=== PATIENT | female | born 1980 | race Caucasian/White ===

== ENCOUNTER 2016-05-15 20:58 | Emergency (ER) | payer MEDICAID ==
--- NOTE | 2016-05-16 00:31 | ERNOTE ---
Upper Extremity HPI - General Extremities Pain Location: forearm: right - pain and swelling after a fall Time Seen by Provider: 05/16/16 00:10 Source: patient Exam Limitations: intoxication - Immun/Allergies/Home Medications Immunizations: IMMUNIZATION HX Immunizations Up to Date Yes History of Influenza Vaccine Yes Allergies/Adverse Reactions: Allergies Allergy/AdvReac Type Severity Reaction Status Date / Time morphine Allergy Mild Itching Verified 05/15/16 22:16 cephalexin [Cephalexin] AdvReac Intermediate Other Verified 05/15/16 22:16 Home Medications: HOME MEDICATIONS ALPRAZolam [Xanax] 2 mg PO TID PRN 05/09/12 [Last Taken Unknown] Albuterol Sulfate [Proventil Hfa] 1 inhaler INH Q4H PRN 05/09/12 [Last Taken Unknown] Amitriptyline HCl 100 mg PO HS 05/09/12 [Last Taken Unknown] Ferrous Sulfate [Iron] 325 mg PO DAILY 05/09/12 [Last Taken Unknown] Quetiapine Fumarate [Seroquel] 400 mg PO HS 05/09/12 [Last Taken Unknown] Rizatriptan Benzoate [Maxalt] 10 mg PO PRN PRN 05/09/12 [Last Taken Unknown] Tiotropium [place] [Spiriva] 18 mcg IH DAILY 05/11/12 [Last Taken 05/11/12 09:00 ] Fluticasone/Salmeterol [Advair 250-50 Diskus] 1 puff INH BID 08/09/13 [Last Taken Unknown] Ibuprofen [Motrin] 800 mg PO PRN 08/09/13 [Last Taken Unknown] Meclizine HCl 25 mg PO PRN 08/09/13 [Last Taken Unknown] - History of Present Illness Narrative: fall on forearm with pain and swelling Occurred: this afternoon Location of Incident: home Severity: moderate Method of Injury: Reports: fell Reason for Fall: Reports: slipped Loss of Consciousness: Reports: no loss of consciousness Modifying Factors - (Improves): Reports: immobilization Modifying Factors - (Worsens): Reports: movement Associated Symptoms: Reports: loss of power (rt arm) Other Injuries: Reports: none Review of Systems - Narrative Narrative: Pt is a poor historian - Review of Systems Constitutional: Present: no symptoms reported EYE: Present: no symptoms reported ENT: Present: no symptoms reported Respiratory: Present: no symptoms reported Cardiology: Present: no symptoms reported Gastrointestinal/Abdominal: Present: no symptoms reported Genitourinary: Present: no symptoms reported Musculoskeletal: Present: See HPI, muscle stiffness, joint pain, joint swelling Skin: Present: See HPI, lumps, change in color Neurological: Present: no symptoms reported Endocrine: Present: no symptoms reported Hematologic/Lymphatic: Present: no symptoms reported Psych: Present: no symptoms reported - Patient's Past Medical History Patient History - Medical: Anxiety, GERD Patient History - Cancer: Cervical Patient History - Surgical Procedures: Other - Social History Living Situations: home Smoking Status: Current every day smoker Patient requests Smoking Cessation Consult: No Initiate information on Smoking Cessation: No Alcohol Use: none Drug Use: none Physical Exam - Physical Exam General Appearance: Present: wd/wn, mild distress, thin, sleeping/easy to arouse - but appears somewhat confused upon awakening Ears, Nose, Throat: Present: normal ENT inspection, hearing grossly normal Neck: Present: normal inspection, nontender Respiratory: Present: no respiratory distress, no accessory muscle use Extremity Exam: Present: decreased range of motion, other - tenderness right forearm from elbow to hand. Bruising right medial/ posterior forearm near the wrist Neurological Exam: Present: other - Seemed confused and had scattered thoughts when awakened Skin Exam: Present: warm/dry, other - red to brown bruising right distal forearm ED Progress - Vital Signs Patient's Vital Signs:: I have reviewed the patient's vital signs. Vital Signs: Vital Signs 05/15/16 22:09 Temperature 36.5 C Pulse Rate 88 Respiratory 18 Rate Blood Pressure 153/67 O2 Sat by Pulse 98 Oximetry - X-Ray X-Ray #1 X-Ray: forearm - showed a irregularity near the distal end of the bone, but no definate fracture X-Ray #2 X-Ray: wrist - no fracture or dislocation - Progress/Reassessment Chief Complaint: Upper Extremity Injury/Problem Departure Clinical Impression: Right wrist fracture Qualifiers: Encounter type: initial encounter Fracture type: closed Qualified Code(s): S62.101A - Fracture of unspecified carpal bone, right wrist, initial encounter for closed fracture - Departure Disposition: Home Follow Up Needed Condition: Fair Instructions: Wrist Fracture Treated With Immobilization, [id number] Additional Instructions: Someone will call you in the morning about the x-ray when the official reading is returned. Take ibuprofent 800 mg TID as needed for pain. Keep the arm elevated above your heart as much as possible Referrals: [Primary Care Provider] -
[2016-05-16] MEDS ORDERED: KETOROLAC TROMETHAMINE 60 MG/2 ML VIAL IM ONE ×2 (00:42→00:43)
[2016-05-16 01:28] VITALS: BP 117/74
== END 2016-05-16 00:51 | disposition home or self-care (01) ==
LOC: ER 20:58
PROC: 2W3CX1Z Immobilization of Right Lower Arm using Splint (ICD-10-PCS; principal; 2016-05-15)
DX: S52.91XA Unspecified fracture of right forearm, initial encounter for closed fracture (principal); W19.XXXA Unspecified fall, initial encounter; F17.210 Nicotine dependence, cigarettes, uncomplicated; Z85.41 Personal history of malignant neoplasm of cervix uteri